=== PATIENT | male | born 1950 | race Hispanic/Latino ===

== ENCOUNTER → 2022-03-21 | Outpatient (CLI) | payer OTHER | END | disposition home or self-care (01) | LOC: RAH 12:41 | PROVIDERS: ATTEND Family Medicine | DX: E04.1 Nontoxic single thyroid nodule (principal) | CPT/HCPCS: 76536 ==

== ENCOUNTER 2024-11-30 07:12 | Emergency (ER) | payer OTHER ==
[~2024-11-30] VITALS: Ht 167.6 cm; Wt 72.6 kg
--- NOTE | 2024-11-30 07:42 | EKG ---
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
[2024-11-30 07:43] LABS: IMMATURE GRANULOCYTE ABSOLUTE 0.04 K/uL (0-1); NUCLEATED RED BLOOD CELLS 0.0 % (0.0-0.19); PLATELET COUNT (AUTO) 211 K/uL (130-400); RED BLOOD CELL COUNT(AUTO) 4.52 MIL/uL (4.50-6.20); RED CELL DISTRIBUTION WIDTH 12.6 % (11.0-15.5); WHITE BLOOD COUNT (AUTO) 9.3 K/uL (4.8-10.8)
--- NOTE | 2024-11-30 07:43 | ERN ---
General Chief Complaint: Abdominal Pain Stated Complaint: RLQ PAIN Time Seen by MD: 07:14 Source: patient History of Present Illness Initial Comments Patient is a 74-year-old male coming in complaining of lower abdominal pain. Per patient the pain began earlier in the morning. Pain is localized to the suprapubic and right lower quadrant area. No fever or chills. Patient states that the pain is 8/10. Allergies: Coded Allergies: No Known Allergies (Unverified Allergy, Unknown, 11/30/24) Past Medical History Past Medical History: High Cholesterol, Hypertension Past Surgical History: None ROS Dictation CONSTITUTIONAL: No chills, no fever, no weakness, no diaphoresis, no malaise. HEAD/FACE: No signs of trauma. EENT: No eye pain, no blurred vision, no tearing, no double vision, no ear pain, no ear discharge, no nose pain, no nasal congestion, no throat pain, no throat swelling, no mouth pain. RESPIRATORY: No cough, no orthopnea, no SOB, no stridor, no wheezing. CARDIOVASCULAR: No chest pain, no edema, no palpitations, no syncope. GASTROINTESTINAL/ABDOMINAL: abdominal pain, no constipation, no diarrhea, no nausea, no vomiting. GENITOURINARY: No abnormal discharge, no dysuria, no frequent urination, no hematuria. No complaints of pain in the genitals. MUSCULOSKELETAL: No back pain, no gout, no joint pain, no joint swelling, no muscle pain, no muscle stiffness, no neck pain. INTEGUMENTARY: No change in color, no change in hair/nails, no dryness, no lesion, no lumps, no rash. NEUROLOGICAL/PSYCH: No anxiety, not depressed, no emotional problem, no headache, no numbness, no pre-existing deficit, no history of seizures, no tremors, no weakness. HEMATOLOGIC/LYMPHATIC: Not anemic, no history of blood clots, no apparent bleeding, no bruising, glands not swollen. All Systems Negative, Except as Noted. Physical Exam Physical Exam Dictation VITAL SIGNS: Reviewed. GENERAL APPEARANCE: Alert, oriented x3, no acute distress, obese. HEAD AND FACE: Non-traumatic. EYES: PERRL, pink conjunctivas, eyelid no trauma, anterior chamber clear. EARS: Pinnas intact and no signs of trauma or erythema. Ear canals clear and no discharge. TMs no erythema. NOSE: No discharge, no bleeding. OROPHARYNX: Mouth normal, teeth no caries, tongue pink. Pharynx clear, no erythema. Tonsils no exudates, no abscesses noted. Mucous membrane moist. NECK: Supple, non-tender, no thyromegaly, no masses, no JVD, no bruits. BREAST: Deferred. CHEST: No tenderness, no crepitus, no paradoxical movement, no retractions. LUNGS: Clear, well-ventilated, symmetric, no rales, no wheezing, no rhonchi, no stridor, good breath sounds bilaterally. HEART: Regular rate, regular rhythm, no murmur, no gallops. VASCULAR: No peripheral edema. ABDOMEN: Soft, positive bowel sounds, nondistended, no guarding, right lower quadrant tenderness on palpation, no rebound, no masses no hepatomegaly, no splenomegaly, no Erickson's sign, no hernias. RECTAL: Deferred. GENITAL: Deferred. NEUROLOGICAL: Normal speech, gross motor function intact, gross sensory function intact. MUSCULOSKELETAL: Neck nontender, full range of motion, back nontender, full range of motion. EXTREMITIES: Nontender, full range of motion. SKIN: Color pink, dry, no turgor, no rash, no lacerations, no abrasions, no contusions. LYMPHATICS: Deferred. Results Laboratory and Microbiology Lab and Micro Result Laboratory Tests Test 11/30/24 07:28 11/30/24 09:35 White Blood Count 9.3 K/uL (4.8-10.8) Red Blood Count 4.52 MIL/uL (4.50-6.20) Hemoglobin 14.3 g/dL (14.0-18.0) Hematocrit 40.5 % (42-54) L Mean Corpuscular Volume 89.6 fL (79-99) Mean Corpuscular Hemoglobin 31.6 pg (27.0-33.0) Mean Corpuscular Hemoglobin Concent 35.3 g/dL (32.0-36.0) Red Cell Distribution Width 12.6 % (11.0-15.5) Platelet Count 211 K/uL (130-400) Mean Platelet Volume 10.1 fL (7.5-10.5) Immature Granulocyte % (Auto) 0.4 % (0-1) Neutrophils (%) (Auto) 77.7 % (40.0-77.0) H Lymphocytes (%) (Auto) 13.6 % (21.0-51.0) L Monocytes (%) (Auto) 5.7 % (3.0-13.0) Eosinophils (%) (Auto) 2.2 % (0.0-8.0) Basophils (%) (Auto) 0.4 % (0.0-5.0) Neutrophils # (Auto) 7.2 K/uL (1.8-7.7) Lymphocytes # (Auto) 1.3 K/uL (1.0-4.8) Monocytes # (Auto) 0.5 K/uL (0.1-1.0) Eosinophils # (Auto) 0.20 K/uL (0.00-0.70) Basophils # (Auto) 0.04 K/uL (0.00-0.20) Absolute Immature Granulocyte (auto 0.04 K/uL (0-1) Nucleated Red Blood Cells 0.0 % (0.0-0.19) Sodium Level 138 mmol/L (136-145) Potassium Level 4.0 mmol/L (3.5-5.1) Chloride Level 105 mmol/L (101-111) Carbon Dioxide Level 28 mmol/L (21-32) Blood Urea Nitrogen 20 mg/dL (7-18) H Creatinine 0.8 mg/dL (0.5-1.3) Glomerular Filtration Rate Calc 93 mL/min (>90) Random Glucose 116 mg/dL (70-105) H Total Calcium 8.6 mg/dL (8.5-10.1) Troponin I High Sensitivity 5 ng/L (4-75) Urine Color LIGHT-YELLOW (YELLOW) Urine Appearance CLEAR (CLEAR) Urine pH 5.0 (5.0-8.0) Urine Specific [place] 1.023 (1.001-1.031) Urine Protein NEGATIVE mg/dL (NEGATIVE) Urine Glucose (UA) NEGATIVE mg/dL (NEGATIVE) Urine Ketones NEGATIVE mg/dL (NEGATIVE) Urine Occult Blood NEGATIVE (NEGATIVE) Urine Nitrate NEGATIVE (NEGATIVE) Urine Bilirubin NEGATIVE mg/dL (NEGATIVE) Urine Urobilinogen 0.2 mg/dL (0.2-1.0) Urine Leukocyte Esterase NEGATIVE Radha/uL Labs Reviewed?: Yes EKG/XRAY/US/CT/MRI EKG Comment 11/30/2024 time 7:36 a.m. Ventricular rate of [address] wave elevation or depression CT Scan Comment IMAGING REPORT Signed PATIENT: STERLING CHEEK MR#: [id number] : 1950 SEX: M AGE: 74 LOCATION: [facility] ORDER 0 STATUS: REG ER REPORT#: [id number] SERVICE REASON: Abdominal Pain ORDERING PHYSICIAN: FREEDOM JOHNSON MD PROCEDURE: ABD PEL W - CT ABDOMEN/PELVIS W/CONTRAST EXAM: CT Abdomen and Pelvis with IV contrast CLINICAL HISTORY: Right lower quadrant pain. TECHNIQUE: Thin collimated axial CT images of the abdomen and pelvis with intravenous contrast were obtained with sagittal and coronal reformatted images also submitted. CT scan is done according to ALARA (As Low As Reasonably Achievable). CONTRAST: Omnipaque 350, 75 cc. COMPARISON: None. FINDINGS: Unremarkable visualized lung parenchyma. No focal abnormality within the liver, gallbladder, pancreas, spleen, adrenals, or kidneys. There is no obvious bowel wall thickening. Bowel loops are normal in caliber without evidence of obstruction or ileus. The appendix is normal. There is no abnormality within the urinary bladder. Moderate prostatomegaly. Abdominal and pelvic vessels are patent. No lymphadenopathy. No free fluid. There is no acute osseous abnormality. Multilevel thoracolumbar spondylosis. IMPRESSIONS: No acute process in the abdomen or pelvis. Moderate prostatomegaly. /[place] DICTATED BY: KIP RANDOLPH MD DATE: 11/30/241133 ELECTRONICALLY SIGNED BY: KIP RANDOLPH MD DATE: 11/30/241133 [facility] MDM: Differential diagnosis: Prostate enlargement, suprapubic pain, appendicitis, Rationale: Tests considered and ordered secondary to shared decision making include: Previous outside records reviewed: Old ER visits. Risk of complication and/or morbidity or mortality of patient management: None Medications-Per medication reconciliation Need for hospitalization: Patient does not meet criteria for hospitalization. Patient is a 74-year-old male coming in complaining of suprapubic pain. On physical exam pain is 10/[address] disclose in his lost prostate patient was retaining some urine Cooper catheter was placed I did advised him appropriate follow up with PCP and/or urologist. Patient states he feels much better will be discharged in stable condition. ED Course Orders Procedure Category Date Status Time Cbc With Differential LAB 11/30/24 Complete 07:30 Troponin I High LAB 11/30/24 Complete Sensitivity 07:30 Urinalysis Profile LAB 11/30/24 Complete 07:30 Ct Abdomen/Pelvis CT 11/30/24 Resulted W/Contrast 07:30 12 Lead Ekg Tracing- EKG 11/30/24 Complete Technical 07:30 0.9%Nacl 1000ml (Ns PHA 11/30/24 Complete 1000ml) 07:30 Basic Metabolic Panel LAB 11/30/24 Complete 07:30 Iohexol (Omnipaque) PHA 11/30/24 Complete 09:13 Iohexol (Omnipaque) PHA 11/30/24 Complete 09:13 Morphine 2mg Syg PHA 11/30/24 Complete (Morphine 2mg Syg) 10:00 Ondansetron 4mg Inj PHA 11/30/24 Complete (Zofran 4mg Inj) 10:00 Current Medications Medications (Trade) Dose Ordered Sig/Taye Route PRN Reason Start Time Stop Time Status Last Admin Dose Admin Iohexol (Omnipaque) 75 ml STK-MED ONCE IV 11/30/24 09:13 11/30/24 09:14 DC Iohexol (Omnipaque) 35,000 mg STK-MED ONCE IV 11/30/24 09:13 11/30/24 09:13 DC Morphine Sulfate (morPHINE 2MG SYG) 2 mg ONCE ONCE IVP 11/30/24 10:00 11/30/24 10:01 DC 11/30/24 10:03 Ondansetron HCl (zoFRAN 4MG INJ) 4 mg ONCE ONCE IVP 11/30/24 10:00 11/30/24 10:01 DC 11/30/24 09:58 Sodium Chloride 1,000 ml @ 0 mls/hr ONCE ONCE IV 11/30/24 07:30 11/30/24 07:32 DC 11/30/24 07:46 Vital Signs Date Time Temp Pulse Resp B/P (MAP) Pulse Ox O2 Delivery O2 Flow Rate FiO2 11/30/24 10:38 97.9 55 16 142/80 99 Room Air* 0 21 11/30/24 08:53 97.5 54 16 125/86 100 Room Air* 0 21 11/30/24 07:30 97.9 52 16 187/81 96 Room Air* 0 21 11/30/24 07:13 97.9 52 16 187/81 96 Room Air 0 DX & DISP Disposition: Discharge Departure Impression: Primary Impression: Prostate enlargement Additional Impression: Cooper catheter in place Condition: Stable Additional Instructions: FOLLOW-UP WITH PRIMARY CARE PROVIDER IN 1 TO 2 DAYS. TAKE MEDICATIONS DIRECTED HERE IN THE EMERGENCY ROOM. OKAY TO CONTINUE HOME MEDICATIONS UNLESS OTHERWISE DISCUSSED DURING YOUR VISIT IN THE EMERGENCY ROOM TODAY. RETURN TO YOUR NEAREST EMERGENCY ROOM IF SYMPTOMS WORSEN OR IF THERE IS NO IMPROVEMENT. CALL 911 IF YOU NEED IMMEDIATE ASSISTANCE. TAKE TYLENOL [id number] NEEDED AND IF NO CONTRAINDICATIONS ARE PRESENT. INCREASE ORAL HYDRATION. A WOUND CULTURE OR URINE CULTURE WAS ORDERED HERE IN THE EMERGENCY ROOM DEPARTMENT PLEASE FOLLOW-UP WITH PRIMARY CARE PROVIDER AND ADVISE THEM TO GET REPORTS FROM OUR FACILITY. IF YOU HAD ANY YSABEL WRAP/SPLINTS THAT WERE APPLIED HERE, PLEASE DO NOT REMOVE THEM UNTIL YOU SEE YOUR PRIMARY CARE OR SPECIALTY. Referrals: Referrals: VIDA SHOOK MD (PCP) RAMON CABRERA MD Time of Disposition: 11:05 FREEDOM JOHNSON MD Nov 30, 2024 07:43
[2024-11-30] MEDS: 0.9%NACL 1000ML 1,000 ML IV ONE (07:46)
[2024-11-30 08:03] LABS: CREATININE 0.8 mg/dL (0.5-1.3); GLOMERULAR FILTR. RATE CALC 93.0 mL/min (>90); GLUCOSE,RANDOM 116.0 mg/dL (70-105); SODIUM SERUM 138.0 mmol/L (136-145); UREA NITROGEN, BLOOD 20.0 mg/dL (7-18)
[2024-11-30] MEDS ORDERED: IOHEXOL-350 75 ML VIAL IV ONE (09:13)
[2024-11-30] MEDS ORDERED: IOHEXOL 350 MG/ML 100ML INFUS..BTL IV ONE (09:13)
[2024-11-30 09:49] LABS: APPEARANCE,URINE CLEAR (CLEAR); GLUCOSE, URINE (UA) NEGATIVE (NEGATIVE); LEUKOCYTE ESTERASE ,URINE NEGATIVE Leu/uL (NEGATIVE); NITRATE,URINE NEGATIVE (NEGATIVE); OCCULT BLOOD,URINE NEGATIVE (NEGATIVE)
[2024-11-30 10:26] LABS: ADD UA MICROSCOPIC NO
--- NOTE | 2024-11-30 10:35 | HMCIMG ---
EXAM: CT Abdomen and Pelvis with IV contrast CLINICAL HISTORY: Right lower quadrant pain. TECHNIQUE: Thin collimated axial CT images of the abdomen and pelvis with intravenous contrast were obtained with sagittal and coronal reformatted images also submitted. CT scan is done according to ALARA (As Low As Reasonably Achievable). CONTRAST: Omnipaque 350, 75 cc. COMPARISON: None. FINDINGS: Unremarkable visualized lung parenchyma. No focal abnormality within the liver, gallbladder, pancreas, spleen, adrenals, or kidneys. There is no obvious bowel wall thickening. Bowel loops are normal in caliber without evidence of obstruction or ileus. The appendix is normal. There is no abnormality within the urinary bladder. Moderate prostatomegaly. Abdominal and pelvic vessels are patent. No lymphadenopathy. No free fluid. There is no acute osseous abnormality. Multilevel thoracolumbar spondylosis. IMPRESSIONS: No acute process in the abdomen or pelvis. Moderate prostatomegaly. /[place]
[2024-11-30 10:38] VITALS: BP 142/80; PULSE 55; RESP 16; TEMP 97.8; O2SAT 99
--- NOTE | 2024-11-30 11:00 | NUR ---
bladder scan shows >298cc's urine in bladder
== END 2024-11-30 11:54 | disposition home or self-care (01) ==
LOC: EDH 07:12
DX: N40.0 Benign prostatic hyperplasia without lower urinary tract symptoms (principal); E78.00 Pure hypercholesterolemia, unspecified; I10 Essential (primary) hypertension; Z96.0 Presence of urogenital implants
CPT/HCPCS: 99284; 74177; 96374; 96361; 96375; 84484; 80048; 85025; 81003; 36415; 51702; 93005; J2270; J7030; J2405; Q9967